=== PATIENT | male | born 1970 | race Two or more races ===

== ENCOUNTER 2024-03-18 09:22 | Emergency (ER) | payer SELFPAY ==
[2024-03-18 09:28] VITALS: BP 153/67; PULSE 83; RESP 18; TEMP 98.1; BMI 29.8
[2024-03-18 10:51] LABS: BASO % 0.5 % (0-2.0); EOS % 1.7 % (0-4.5); HEMATOCRIT 44.9 % (35.4-49); HEMOGLOBIN 15.4 GM/dL (11.7-16.9); LYMPH % 25.3 % (8-40); MCH 30.1 pg (25.7-33.7); MCHC 34.3 g/dl (32.0-35.9); MEAN CELL VOLUME 87.7 fl (80-96); MEAN PLT VOLUME 8.9 fl (7.5-11.1); MONO % 6.9 % (3.8-10.2); NEUT % 65.6 % (42.8-82.8); PLATELET COUNT 197 10^3/uL (134-434); RBC 5.12 M/mm3 (4.00-5.60); RDW 13.3 % (11.9-15.9); WHITE BLOOD COUNT 8.4 K/mm3 (4.0-10.0)
[2024-03-18 11:11] LABS: POTASSIUM 4.5 mmol/L (3.5-5.1)
[2024-03-18 11:14] LABS: ALBUMIN 3.6 g/dl (3.4-5.0); BLOOD UREA NITROGEN 16.7 mg/dL (7-18)
[2024-03-18 11:17] LABS: CREATININE 1.1 mg/dL (0.55-1.3)
[2024-03-18 11:19] LABS: BILIRUBIN,TOTAL 0.7 mg/dL (0.2-1); TOT PROT 7.2 g/dl (6.4-8.2)
== END 2024-03-18 14:42 | disposition home or self-care (01) ==
LOC: JER 09:22
DX: R07.2 Precordial pain (principal); M54.2 Cervicalgia
CPT/HCPCS: 36415; 71046-TC-FY; 80053; 84484; 85025; 93005; 93010; 99285-25